=== PATIENT | male | born 1960 | race Caucasian/White ===

== ENCOUNTER 2018-09-05 22:15 | Emergency (ER) | payer OTHER ==
[~2018-09-05] VITALS: Ht 177.8 cm; Wt 72.7 kg
[2018-09-05] MEDS ORDERED: DIPHENHYDRAMINE 50 MG INJ ONE (22:29)
[2018-09-05] MEDS ORDERED: HALOPERIDOL 5 MG INJ ONE (22:29)
[2018-09-05] MEDS ORDERED: LORAZEPAM 2 MG INJ ONE (22:30)
[2018-09-05] MEDS ORDERED: HALOPERIDOL 5 MG INJ IM ONE (22:30)
[2018-09-05] MEDS ORDERED: DIPHENHYDRAMINE 50 MG INJ IM ONE (22:30)
[2018-09-05] MEDS ORDERED: LORAZEPAM 2 MG INJ IM ONE (22:30)
[2018-09-05 22:57] VITALS: BP 122/78; PULSE 88; RESP 18; Ht 177.8 cm; Wt 72.7 kg
--- NOTE | 2018-09-06 00:07 | ERD ---
ER Documentation Chief Complaint Chief Complaint ETOH HPI 57-year-old brought in via EMS found laying in front of his apartment unable to get up because he has been drinking alcohol. The patient admits to drinking alcohol. The patient is not forthright with information. Initially he states that he did not fall or injure himself and later he states that he may have fallen he cannot tell. Patient has no complaints. Patient becomes belligerent and tries to leave the emergency room requiring restraints. Remainder of HPI is somewhat limited. The patient does admit to drinking alcohol. He denies any suicidal ideation. ROS All systems reviewed and are negative except as per history of present illness. Allergies Allergies: Coded Allergies: No Known Allergy (Unverified , 09/05/18) PMhx/Soc Medical and Surgical Hx: pt denies Medical Hx, pt denies Surgical Hx Hx Alcohol Use: Yes (INTOXICATED ) Hx Substance Use: No Hx Tobacco Use: No Smoking Status: Never smoker FmHx Family History: No diabetes Physical Exam Vitals Vital Signs Date Temp Pulse Resp B/P (MAP) Pulse Ox O2 O2 Flow FiO2 Time Delivery Rate 09/05/18 97.4 72 16 122/78 95 23:05 (93) 09/05/18 98.4 88 18 122/78 99 22:57 (93) 09/05/18 97.4 88 16 122/78 95 22:50 (93) 09/05/18 97.4 98 18 136/82 95 22:35 (100) Physical Exam General: Intoxicated, belligerent, no distress Head: Normocephalic, atraumatic. Eyes: Pupils equally reactive, EOM intact ENT: Moist mucous membranes Neck: Supple, no lymphadenopathy Respiratory: Lungs clear bilaterally, no distress Cardiovascular: RRR, no murmurs, rubs, or gallops Abdominal: Soft, non-tender, non-distended, no peritoneal signs : Deferred MSK: No edema, no unilateral swelling, 5/5 strength Neurologic: Intoxicated however alert and oriented, moving all extremities, normal speech, no focal weakness, limited exam Skin: No rash, no obvious evidence of trauma Psych: Denies SI Results 24 hrs Laboratory Tests Test 09/05/18 22:20 09/05/18 22:40 Bedside Glucose 98 mg/dL Ethyl Alcohol Level 433.0 mg/dl Current Medications Medications Dose Sig/Celestina Start Time Status Last (Trade) Ordered Route PRN Stop Time Admin Dose Reason Admin Haloperidol 5 mg ONCE ONCE 09/05/18 DC 09/05/18 (Haldol) IM 22:30 22:55 09/05/18 22:31 Lorazepam 2 mg ONCE ONCE 09/05/18 DC 09/05/18 (Ativan) IM 22:30 22:54 09/05/18 22:31 50 mg ONCE ONCE 09/05/18 DC 09/05/18 Diphenhydrami IM 22:30 22:55 ne HCl 09/05/18 22:31 (Benadryl) Procedures/MDM EKG, MONITORS, & DIAGNOSTIC IMAGING: CT brain: IMPRESSION: 1. No acute intracranial abnormality. 2. Posterior left parietal subcutaneous soft tissue swelling without an underlying fracture. RPTAT: HMVK PROCEDURES: None Required LAB INTERPRETATION: Elevated alcohol level MEDICAL DECISION MAKING: The patient's presentation is consistent with acute alcohol intoxication I have a much lower clinical concern for clinically significant traumatic brain injury, meningitis, significant electrolyte disturbance. The patient's workup will include a medical screening examination as well as observation for sobriety. The patient's presentation is most consistent with acute alcohol intoxication leading to acute encephalopathy. The patient is protecting their airway. The patient has no signs or symptoms concerning for impending respiratory failure and does not require intubation at this time. The patient will require observation in the emergency room to allow for metabolization. Once the patient is able to ambulate on their own accord, navigate the community the patient can be safely discharged from the emergency room. ER COURSE: The patient rapidly became belligerent and was a fall risk and continued to threaten to leave. He did not have capacity. He required chemical restraints in the form of Haldol Ativan and Benadryl Restrains: Indication: Alcohol intoxication, flight risk Location: 4 point restraints to bilateral upper and lower extremities The patient was given verbal warnings that if the behavior continued the patient would require physical and/or chemical restraints. Despite verbal warnings the behavior continued and restraints were applied. The patient had a bedside reevaluation within 50 minutes of placement of restraints. Patient remained stable. OBSERVATION: Observation Note: Indication: Alcohol Intoxication Duration: Greater than 4 hours Family history: As above The patient was observed with serial exams over the above timeframe. The patient continued to be well-appearing, and observation continued without complication. CONSULTATION: None DISPOSITION PLAN: Pending sobriety, pending reevaluation, endorsed oncoming provider Departure Diagnosis: Primary Impression: Acute alcohol intoxication Complication of substance-induced condition: uncomplicated Qualified Codes: F10.920 - Alcohol use, unspecified with intoxication, uncomplicated Condition: Stable ENID SWANSON MD September 06, 2018 00:07
== END 2018-09-06 04:17 | disposition home or self-care (01) ==
LOC: E/R 22:15
DX: F10.920 Alcohol use, unspecified with intoxication, uncomplicated (principal); R40.2142 Coma scale, eyes open, spontaneous, at arrival to emergency department; R40.2362 Coma scale, best motor response, obeys commands, at arrival to emergency department; R40.2242 Coma scale, best verbal response, confused conversation, at arrival to emergency department; R94.02 Abnormal brain scan
CPT/HCPCS: 70450; 80307; 82962; 96372; J1200; J1630; J2060; Z7502